=== PATIENT | female | born 1995 | race Caucasian/White ===

== ENCOUNTER 2018-09-18 09:08 | Emergency (ER) | payer OTHER ==
[~2018-09-18] VITALS: Ht 165.1 cm; Wt 81.8 kg
[2018-09-18] MEDS ORDERED: IBUPROFEN 600 MG TABLET PO ONE (10:45)
[2018-09-18 11:05] VITALS: BP 123/67
== END 2018-09-18 11:23 | disposition home or self-care (01) ==
LOC: EMS 09:10
DX: S20.219A Contusion of unspecified front wall of thorax, initial encounter (principal); R10.30 Lower abdominal pain, unspecified; M54.2 Cervicalgia; V49.9XXA Car occupant (driver) (passenger) injured in unspecified traffic accident, initial encounter; Y93.89 Activity, other specified; Y92.411 Interstate highway as the place of occurrence of the external cause; Y99.8 Other external cause status

== ENCOUNTER 2018-11-22 11:38 | Emergency (ER) | payer SELFPAY ==
[~2018-11-22] VITALS: Ht 162.6 cm; Wt 84.1 kg
[2018-11-22 12:15] VITALS: BP 115/56
== END 2018-11-22 12:51 | disposition home or self-care (01) ==
LOC: EMS 11:39
DX: S39.012A Strain of muscle, fascia and tendon of lower back, initial encounter (principal); W17.89XA Other fall from one level to another, initial encounter; Y93.01 Activity, walking, marching and hiking; Y92.89 Other specified places as the place of occurrence of the external cause; Y99.8 Other external cause status

== ENCOUNTER 2022-07-05 13:12 | Emergency (ER) | payer MEDICAID ==
[~2022-07-05] VITALS: Ht 162.6 cm; Wt 81.8 kg
[2022-07-05 13:53] VITALS: BP 138/80
[2022-07-05] MEDS ORDERED: IBUPROFEN 600 MG TABLET PO ONE (14:15)
== END 2022-07-05 16:45 | disposition home or self-care (01) ==
LOC: EMS 13:15
DX: M25.561 Pain in right knee (principal)
CPT/HCPCS: 99283